=== PATIENT | female | born 1980 | race Caucasian/White ===

== ENCOUNTER 2016-11-24 15:28 | Emergency (ER) | payer MEDICAID ==
--- NOTE | 2016-11-24 15:53 | ER Document Report ---
ED Medical Screen (RME) - General Chief Complaint: Abdominal Pain Stated Complaint: SIDE PAIN Time seen by provider: 15:51 Mode of Arrival: Ambulatory Information source: Patient Notes: 35-year-old female complaining of left lower quadrant and left side pain that started gradually yesterday morning at 8. It 35 year old female complaining of left lower quadrant abdominal pain and left side pain that feels like her diverticulitis. There is associated nausea. Soft bowel movement with yellow mucus. No dysuria frequency r urgency. No hematuria. No fever. BTL. I have greeted and performed a rapid initial assessment of this patient. A comprehensive ED assessment, evaluation of the patient, analysis of test results , and completion of the medical decision making process will be conducted by additional ED providers. TRAVEL OUTSIDE OF THE [place] IN LAST 30 DAYS: No - Related Data Allergies/Adverse Reactions: No Known Allergies Allergy (Verified 11/09/15 10:00) Past Medical History - Past Medical History Cardiac Medical History: Reports: Hx Coronary Artery Disease Denies: Hx Heart Attack, Hx Hypertension Pulmonary Medical History: Denies: Hx Asthma, Hx Bronchitis, Hx COPD, Hx Pneumonia Neurological Medical History: Denies: Hx Cerebrovascular Accident, Hx Seizures GI Medical History: Reports: Hx Diverticulitis Musculoskeltal Medical History: Denies Hx Arthritis Past Surgical History: Reports: Hx Appendectomy, Hx Section, Hx Cholecystectomy, Hx Tonsillectomy, Hx Tubal Ligation. Denies: Hx Hysterectomy - Immunizations Hx Diphtheria, Pertussis, Tetanus Vaccination: No Physical Exam - Vital signs Vitals: Temp Pulse Resp BP Pulse Ox 98.0 F 78 18 150/86 H 97 11/24/16 15:41 11/24/16 15:41 11/24/16 15:41 11/24/16 15:41 11/24/16 15:41 Course - Vital Signs Vital signs: Temp Pulse Resp BP Pulse Ox 98.0 F 78 18 150/86 H 97 11/24/16 15:41 11/24/16 15:41 11/24/16 15:41 11/24/16 15:41 11/24/16 15:41
[2016-11-24 17:15] LABS: ABSOLUTE BASOPHILS # (AUTO) 0.1 10^3/uL (0.0-0.2); ABSOLUTE EOSINOPHILS # (AUTO) 0.1 10^3/uL (0.0-0.6); ABSOLUTE LYMPHOCYTES (AUTO) 2.5 10^3/uL (0.5-4.7); ABSOLUTE MONOCYTES (AUTO) 0.5 10^3/uL (0.1-1.4); ABSOLUTE NEUT (AUTO) 6.7 10^3/uL (1.7-8.2); BASOPHILS % (AUTO) 1.1 % (0-2); EOSINOPHILS % (AUTO) 1.3 % (0-6); HEMATOCRIT 41.4 % (36.0-47.0); HEMOGLOBIN 13.5 g/dL (12.0-15.5); HGB HCT DIFFERENCE -0.9; LYMPHOCYTES % (AUTO) 25.3 % (13-45); MEAN CORPUSCULAR HEMOGLOBIN 26.8 pg (27.0-33.4); MEAN CORPUSCULAR HGB CONC 32.7 g/dL (32.0-36.0); MEAN CORPUSCULAR VOLUME 82 fl (80-97); MONOCYTES % (AUTO) 5.1 % (3-13); RED BLOOD COUNT 5.05 10^6/uL (3.72-5.28); RED CELL DISTRIBUTION WIDTH 15.3 % (11.5-14.0); SEGMENTED NEUTROPHILS % (AUTO) 67.2 % (42-78)
[2016-11-24 17:35] LABS: ALANINE AMINOTRANSFERASE 25 U/L (9-52); ALBUMIN 4.2 g/dL (3.5-5.0); ALKALINE PHOSPHATASE 88 U/L (38-126); ANION GAP 9 (5-19); ASPARTATE AMINO TRANSFERASE 15 U/L (14-36); BILIRUBIN,TOTAL 0.4 mg/dL (0.2-1.3); BLOOD UREA NITROGEN 12 mg/dL (7-20); CALCIUM 9.3 mg/dL (8.4-10.2); CARBON DIOXIDE 26 mmol/L (22-30); CHLORIDE 106 mmol/L (98-107); CREATININE RESULT 0.95 mg/dL (0.52-1.25); GLUCOSE 88 mg/dL (75-110); LIPASE 62.6 U/L (23-300); POTASSIUM 4.1 mmol/L (3.6-5.0); SODIUM 141.3 mmol/L (137-145); TOTAL PROTEIN 7.1 g/dL (6.3-8.2)
[2016-11-24 17:45] LABS: APPEARANCE,URINE CLOUDY; BILIRUBIN,URINE NEGATIVE (NEGATIVE); GLUCOSE, URINE NEGATIVE (NEGATIVE); KETONES,URINE NEGATIVE (NEGATIVE); LEUKOCYTE ESTERASE,URINE SMALL (NEGATIVE); NITRITE,URINE NEGATIVE (NEGATIVE); PROTEIN,URINE 30 mg/dL (NEGATIVE); URINE SPECIFIC GRAVITY 1.024; UROBILINOGEN,URINE NEGATIVE mg/dL (<2.0)
[2016-11-24] MEDS ORDERED: METRONIDAZOLE 500 MG TABLET PO ONE (19:08)
[2016-11-24] MEDS ORDERED: HYDROCODONE/ACETAMINOPHEN 5-325 MG 6 TAB/DSPK PO PRN (19:08)
[2016-11-24] MEDS ORDERED: CIPROFLOXACIN HCL 500 MG TABLET PO ONE (19:08)
--- NOTE | 2016-11-24 19:12 | ER Document Report ---
ED GI/ - General Chief Complaint: Abdominal Pain Stated Complaint: SIDE PAIN Time seen by provider: 19:08 Mode of Arrival: Ambulatory Information source: Patient TRAVEL OUTSIDE OF THE [place] IN LAST 30 DAYS: No - HPI Patient complains to provider of: Abdominal pain Onset: Yesterday Timing/Duration: Persistent Quality of pain: Achy Severity at maximum: Moderate Severity in ED: Moderate Pain Level: 3 Location: LLQ Vaginal bleeding (Compared to normal period): None Associated symptoms: Nausea Exacerbated by: Denies Relieved by: Denies Similar symptoms previously: Yes Recently seen / treated by doctor: No Notes: 11/24/16 19:09 Patient is a 35-year-old female with a history of diverticulitis who presents to the emergency room complaining of left lower quadrant pain and tenderness which is consistent with her previous episode of diverticulitis, symptoms started yesterday, she reports some nausea but no vomiting, she reports soft mucousy stools, no dysuria or hematuria, no fever or chills, she reports the pain as being constant squeezing with intermittent stabbing, she has been evaluated by gastroenterology in the past, and was initially diagnosed with diverticulitis in this emergency room in 2015 - Related Data Allergies/Adverse Reactions: No Known Allergies Allergy (Verified 11/09/15 10:00) Past Medical History - General Information source: Patient - Social History Smoking Status: Unknown if Ever Smoked Family History: Reviewed & Not Pertinent Patient has suicidal ideation: No Patient has homicidal ideation: No - Past Medical History Cardiac Medical History: Reports: Hx Coronary Artery Disease Denies: Hx Heart Attack, Hx Hypertension Pulmonary Medical History: Denies: Hx Asthma, Hx Bronchitis, Hx COPD, Hx Pneumonia Neurological Medical History: Denies: Hx Cerebrovascular Accident, Hx Seizures Renal/ Medical History: Denies: Hx Peritoneal Dialysis GI Medical History: Reports: Hx Diverticulitis Musculoskeltal Medical History: Denies Hx Arthritis Past Surgical History: Reports: Hx Appendectomy, Hx Section, Hx Cholecystectomy, Hx Tonsillectomy, Hx Tubal Ligation. Denies: Hx Hysterectomy - Immunizations Hx Diphtheria, Pertussis, Tetanus Vaccination: No Review of Systems - Review of Systems Constitutional: No symptoms reported EENT: No symptoms reported Cardiovascular: No symptoms reported Respiratory: No symptoms reported Gastrointestinal: See HPI Genitourinary: No symptoms reported Female Genitourinary: No symptoms reported Musculoskeletal: No symptoms reported Skin: No symptoms reported Hematologic/Lymphatic: No symptoms reported Neurological/Psychological: No symptoms reported -: Yes All other systems reviewed and negative Physical Exam - Vital signs Vitals: Temp Pulse Resp BP Pulse Ox 98.0 F 78 18 150/86 H 97 11/24/16 15:41 11/24/16 15:41 11/24/16 15:41 11/24/16 15:41 11/24/16 15:41 Interpretation: Normal - General General appearance: Appears well, Alert - HEENT Head: Normocephalic, Atraumatic Eyes: Normal Pupils: PERRL - Respiratory Respiratory status: No respiratory distress Chest status: Nontender Breath sounds: Normal Chest palpation: Normal - Cardiovascular Rhythm: Regular Heart sounds: Normal auscultation Murmur: No - Abdominal Inspection: Obese Distension: No distension Bowel sounds: Normal Tenderness: Tender - Left lower quadrant Organomegaly: No organomegaly - Back Back: Normal, Nontender - Extremities General upper extremity: Normal inspection, Nontender, Normal color, Normal ROM , Normal temperature General lower extremity: Normal inspection, Nontender, Normal color, Normal ROM , Normal temperature, Normal weight bearing. No: Maryam's sign - Neurological Neuro grossly intact: Yes Cognition: Normal Orientation: AAOx4 [place] Coma Scale Eye Opening: Spontaneous [place] Coma Scale Verbal: Oriented [place] Coma Scale Motor: Obeys Commands [place] Coma Scale Total: 15 Speech: Normal Motor strength normal: LUE, RUE, LLE, RLE Sensory: Normal - Psychological Associated symptoms: Normal affect, Normal mood - Skin Skin Temperature: Warm Skin Moisture: Dry Skin Color: Normal Course - Re-evaluation Re-evalutation: 11/24/16 19:10 Patient's symptoms are consistent with previous episode of diverticulitis, she is tender in the left lower quadrant, she is also noted to have blood and leukocyte esterase in her urine, therefore we will start her on antibiotics which include Cipro and Flagyl which should treat both diverticulitis and urinary tract infection, patient was provided with a list of gastroenterologists to follow-up with, advised to return if symptoms worsen, patient acknowledges understanding and agreement with this plan - Vital Signs Vital signs: Temp Pulse Resp BP Pulse Ox 98.0 F 78 18 150/86 H 97 11/24/16 15:41 11/24/16 15:41 11/24/16 15:41 11/24/16 15:41 11/24/16 15:41 - Laboratory Result Diagrams: 11/24/16 17:02 11/24/16 17:02 Laboratory results interpreted by me: 11/24/16 11/24/16 17:02 17:20 MCH 26.8 L RDW 15.3 H Urine Protein 30 H Urine Blood LARGE H Ur Leukocyte Esterase SMALL H Discharge - Discharge Clinical Impression: Diverticulitis Qualifiers: Diverticulitis site: large intestine Diverticulitis bleeding: without bleeding Diverticulitis complication: without perforation or abscess Qualified Code(s): K57.32 - Diverticulitis of large intestine without perforation or abscess without bleeding Urinary tract infection Qualifiers: Urinary tract infection type: site unspecified Hematuria presence: without hematuria Qualified Code(s): N39.0 - Urinary tract infection, site not specified Condition: Stable Disposition: HOME, SELF-CARE Instructions: Diverticulitis ([facility]), Abdominal Pain ([facility]), Ciprofloxacin ([facility]), Oral Narcotic Medication ([facility]), Urinary Tract Infection ([facility]), Gastroenterology Additional Instructions: Follow up with your primary care provider in one to 2 days. Return to the emergency room immediately if symptoms worsen or any additional concerns. Prescriptions: Ciprofloxacin HCl [Cipro 500 mg Tablet] 500 mg PO BID #20 tablet Hydrocodone/Acetaminophen [Hydrocodon-Acetaminophen 5-325] 1 each PO Q6 #20 tablet Metronidazole [Flagyl 500 mg Tablet] 500 mg PO TID #30 tablet
[2016-11-24 19:30] VITALS: BP 139/80
== END 2016-11-24 19:31 | disposition home or self-care (01) ==
LOC: ER 15:28
DX: K57.32 Diverticulitis of large intestine without perforation or abscess without bleeding (principal); N39.0 Urinary tract infection, site not specified; R10.32 Left lower quadrant pain; R10.814 Left lower quadrant abdominal tenderness; R11.0 Nausea; R19.4 Change in bowel habit; I25.10 Atherosclerotic heart disease of native coronary artery without angina pectoris; Z90.49 Acquired absence of other specified parts of digestive tract; Z98.51 Tubal ligation status
CPT/HCPCS: 99284; 36415; 83690; 84703; 85025; 80053; 81001; J3490 ×2

== ENCOUNTER 2017-01-08 08:00 | Emergency (ER) | payer MEDICAID ==
[2017-01-08 09:31] LABS: ABSOLUTE BASOPHILS # (AUTO) 0.1 10^3/uL (0.0-0.2); ABSOLUTE EOSINOPHILS # (AUTO) 0.1 10^3/uL (0.0-0.6); ABSOLUTE LYMPHOCYTES (AUTO) 1.4 10^3/uL (0.5-4.7); ABSOLUTE MONOCYTES (AUTO) 0.6 10^3/uL (0.1-1.4); ABSOLUTE NEUT (AUTO) 15.2 10^3/uL (1.7-8.2); BASOPHILS % (AUTO) 0.4 % (0-2); EOSINOPHILS % (AUTO) 0.6 % (0-6); HEMATOCRIT 43.6 % (36.0-47.0); HEMOGLOBIN 14.2 g/dL (12.0-15.5); LYMPHOCYTES % (AUTO) 8.2 % (13-45); MEAN CORPUSCULAR HEMOGLOBIN 26.5 pg (27.0-33.4); MEAN CORPUSCULAR HGB CONC 32.7 g/dL (32.0-36.0); MEAN CORPUSCULAR VOLUME 81 fl (80-97); MONOCYTES % (AUTO) 3.4 % (3-13); RED BLOOD COUNT 5.36 10^6/uL (3.72-5.28); RED CELL DISTRIBUTION WIDTH 15.2 % (11.5-14.0); SEGMENTED NEUTROPHILS % (AUTO) 87.4 % (42-78); WHITE BLOOD COUNT 17.4 10^3/uL (4.0-10.5)
[2017-01-08 09:43] LABS: ALANINE AMINOTRANSFERASE 28 U/L (9-52); ALBUMIN 4.3 g/dL (3.5-5.0); ALKALINE PHOSPHATASE 109 U/L (38-126); ANION GAP 12 (5-19); ASPARTATE AMINO TRANSFERASE 16 U/L (14-36); BILIRUBIN,DIRECT 0.3 mg/dL (0.0-0.4); BILIRUBIN,TOTAL 0.4 mg/dL (0.2-1.3); BLOOD UREA NITROGEN 11 mg/dL (7-20); CALCIUM 9.6 mg/dL (8.4-10.2); CARBON DIOXIDE 25 mmol/L (22-30); CHLORIDE 108 mmol/L (98-107); CREATININE RESULT 0.71 mg/dL (0.52-1.25); GLUCOSE 116 mg/dL (75-110); POTASSIUM 4.5 mmol/L (3.6-5.0); SODIUM 145.4 mmol/L (137-145); TOTAL PROTEIN 7.3 g/dL (6.3-8.2)
[2017-01-08 10:12] LABS: APPEARANCE,URINE SLIGHTLY-CLOUDY; BILIRUBIN,URINE NEGATIVE (NEGATIVE); GLUCOSE, URINE NEGATIVE (NEGATIVE); KETONES,URINE NEGATIVE (NEGATIVE); LEUKOCYTE ESTERASE,URINE NEGATIVE (NEGATIVE); NITRITE,URINE NEGATIVE (NEGATIVE); PROTEIN,URINE NEGATIVE (NEGATIVE); URINE SPECIFIC GRAVITY 1.026; UROBILINOGEN,URINE NEGATIVE mg/dL (<2.0)
[2017-01-08] MEDS ORDERED: NORMAL SALINE 1000 ML 1,000 ML IV ONE (11:03)
--- NOTE | 2017-01-08 11:08 | ER Document Report ---
ED GI/ - General Chief Complaint: Abdominal Pain Stated Complaint: LEFT SIDE FLANK PAIN, VOMITING Time seen by provider: 11:02 Mode of Arrival: Ambulatory Information source: Patient Notes: 36-year-old female complaining of left-sided abdominal pain that radiated across her low abdomen to the right side since 9:00 last night. It is sharp. White count is 17,000 and a test is negative. Chemistry is normal. No vaginal discharge. No dysuria or frequency. She has a history of diverticulosis and thought it was that since she had mucous and blood with stool yesterday but she is vomiting and has pain all the way across which is different. Last abd. ct was TRAVEL OUTSIDE OF THE [place] IN LAST 30 DAYS: No - Related Data Allergies/Adverse Reactions: No Known Allergies Allergy (Verified 01/08/17 08:08) Past Medical History - General Information source: Patient - Social History Smoking Status: Current Every Day Smoker Chew tobacco use (# tins/day): No Frequency of alcohol use: None Drug Abuse: Marijuana Lives with: Spouse/Significant other Family History: Reviewed & Not Pertinent Patient has suicidal ideation: No Patient has homicidal ideation: No - Past Medical History Cardiac Medical History: Reports: Hx Coronary Artery Disease Renal/ Medical History: Denies: Hx Peritoneal Dialysis GI Medical History: Reports: Hx Diverticulitis Past Surgical History: Reports: Hx Appendectomy, Hx Section, Hx Cholecystectomy, Hx Tonsillectomy, Hx Tubal Ligation. Denies: Hx Hysterectomy - Immunizations Hx Diphtheria, Pertussis, Tetanus Vaccination: No Review of Systems - Review of Systems Constitutional: No symptoms reported EENT: No symptoms reported Cardiovascular: No symptoms reported Respiratory: No symptoms reported Gastrointestinal: No symptoms reported Genitourinary: No symptoms reported Female Genitourinary: No symptoms reported Musculoskeletal: No symptoms reported Skin: No symptoms reported Hematologic/Lymphatic: No symptoms reported Neurological/Psychological: No symptoms reported Physical Exam - Vital signs Vitals: Temp Pulse Resp BP Pulse Ox 98.0 F 62 21 H 145/90 H 100 01/08/17 08:07 01/08/17 08:07 01/08/17 08:07 01/08/17 08:07 01/08/17 08:07 Interpretation: Normal - General General appearance: Appears well, Alert Notes: Tearful and obese - HEENT Head: Normocephalic, Atraumatic Eyes: Normal Conjunctiva: Normal Pupils: PERRL Mucous membranes: Normal Pharynx: Normal Neck: Supple. No: Lymphadenopathy - Respiratory Respiratory status: No respiratory distress Chest status: Nontender Breath sounds: Normal Chest palpation: Normal - Cardiovascular Rhythm: Regular Heart sounds: Normal auscultation Murmur: No - Abdominal Inspection: Normal Distension: No distension Bowel sounds: Normal Tenderness: Tender - Pelvis all the way across, left lower quadrant Organomegaly: No organomegaly. No: Hepatomegaly, Splenomegaly - Genitourinary External exam: Normal Speculum exam: Normal, Cervix closed, Other - Clear mucus that I Vaginal bleeding: None Bimanuel exam: Cervical motion tender, Adnexal tenderness - Back Back: Normal, Nontender. No: CVA tenderness - Extremities General upper extremity: Normal inspection, Nontender, Normal color, Normal ROM , Normal temperature General lower extremity: Normal inspection, Nontender, Normal color, Normal ROM , Normal temperature, Normal weight bearing. No: Maryam's sign - Neurological Neuro grossly intact: Yes Cognition: Normal Orientation: AAOx4 [place] Coma Scale Eye Opening: Spontaneous [place] Coma Scale Verbal: Oriented [place] Coma Scale Motor: Obeys Commands [place] Coma Scale Total: 15 Speech: Normal Motor strength normal: LUE, RUE, LLE, RLE Sensory: Normal - Psychological Associated symptoms: Normal affect, Normal mood - Skin Skin Temperature: Warm Skin Moisture: Dry Skin Color: Normal Skin irregularity: negative: Rash Course - Re-evaluation Re-evalutation: 01/08/17 13:53 Transvaginal ultrasound was negative. No torsion. 01/08/17 13:[address] acosta recommends getting a CT the abdomen and pelvis with IV contrast. Her BMI is 35 01/08/17 15:44 CT shows early acute diverticulitis and they sigmoid and descending colon. There is no perforation or abscess. STD cultures are negative. Wet prep is negative urine is negative - Vital Signs Vital signs: Temp Pulse Resp BP Pulse Ox 98.0 F 62 21 H 145/90 H 100 01/08/17 08:07 01/08/17 08:07 01/08/17 08:07 01/08/17 08:07 01/08/17 08:07 - Laboratory Result Diagrams: 01/08/17 09:16 01/08/17 09:16 Laboratory results interpreted by me: 01/08/17 01/08/17 09:16 09:16 WBC 17.4 H RBC 5.36 H MCH 26.5 L RDW 15.2 H Seg Neutrophils % 87.4 H Lymphocytes % 8.2 L Absolute Neutrophils 15.2 H Sodium 145.4 H Chloride 108 H Glucose 116 H Discharge - Discharge Clinical Impression: early acute diverticulitis Condition: Good Disposition: HOME, SELF-CARE Instructions: Abdominal Pain ([facility]), Diverticulitis ([facility]), Ciprofloxacin ([facility]), Metronidazole ([facility]), Ultram ([facility]) Additional Instructions: to er if worse see program writer about this frequent diverticulitis drink plenty of fluids Please complete the patient satisfaction survey if you get one, and return it.. If you do not receive a survey, then you can go to the [facility] website, [email or web address] and place your comments about your very good care. Thank you very much. It was a pleasure being your medical provider today. Prescriptions: Ciprofloxacin HCl [Cipro 750 mg Tablet] 750 mg PO BID #20 tablet Metronidazole [Flagyl 500 mg Tablet] 500 mg PO Q6H #40 tablet Tramadol HCl [Ultram 50 mg Tablet] 50 mg PO ASDIR PRN #15 tablet PRN Reason:
[2017-01-08] MEDS ORDERED: MORPHINE SULFATE 10 MG/ML INJ IV ONE ×2 (11:10→14:24)
[2017-01-08] MEDS ORDERED: CEFTRIAXONE INJ 250 MG VIAL IV ONE (12:28)
[2017-01-08] MEDS ORDERED: AZITHROMYCIN 250 MG TABLET PO ONE (12:28)
[2017-01-08 14:17] LABS: CHLAM PCR NOT DETECTED (NOT DETECT)
[2017-01-08] MEDS ORDERED: ONDANSETRON HCL INJ/PF 4 MG/2 ML SDV IV ONE (14:24)
[2017-01-08 16:39] VITALS: BP 132/73
== END 2017-01-08 16:00 | disposition home or self-care (01) ==
LOC: ER 08:00
DX: K57.92 Diverticulitis of intestine, part unspecified, without perforation or abscess without bleeding (principal); R10.9 Unspecified abdominal pain; F17.200 Nicotine dependence, unspecified, uncomplicated
CPT/HCPCS: 96376; 99284; 96361; 96375; 96365; 36415; 87210; 85025; 81025; 80053; 81001; 87491; 87591; 76830; 93976; 74177; Q0144; J2270; J2405; J7030; J0696

== ENCOUNTER 2017-06-05 21:41 | Emergency (ER) | payer MEDICAID ==
[2017-06-05 22:53] LABS: ABSOLUTE BASOPHILS # (AUTO) 0.1 10^3/uL (0.0-0.2); ABSOLUTE EOSINOPHILS # (AUTO) 0.2 10^3/uL (0.0-0.6); ABSOLUTE LYMPHOCYTES (AUTO) 2.5 10^3/uL (0.5-4.7); ABSOLUTE MONOCYTES (AUTO) 0.8 10^3/uL (0.1-1.4); ABSOLUTE NEUT (AUTO) 5.6 10^3/uL (1.7-8.2); BASOPHILS % (AUTO) 0.6 % (0-2); EOSINOPHILS % (AUTO) 2.7 % (0-6); HEMATOCRIT 37.9 % (36.0-47.0); HEMOGLOBIN 12.6 g/dL (12.0-15.5); HGB HCT DIFFERENCE -0.1; MEAN CORPUSCULAR HEMOGLOBIN 27.2 pg (27.0-33.4); MEAN CORPUSCULAR HGB CONC 33.1 g/dL (32.0-36.0); MEAN CORPUSCULAR VOLUME 82 fl (80-97); MONOCYTES % (AUTO) 8.4 % (3-13); RED BLOOD COUNT 4.62 10^6/uL (3.72-5.28); RED CELL DISTRIBUTION WIDTH 15.5 % (11.5-14.0); SEGMENTED NEUTROPHILS % (AUTO) 61.3 % (42-78); WHITE BLOOD COUNT 9.1 10^3/uL (4.0-10.5)
--- NOTE | 2017-06-05 23:20 | ER Document Report ---
ED General - General Chief Complaint: Vaginal Bleeding Stated Complaint: POST SURGERY CHECK Time Seen by Provider: 06/05/17 22:07 Notes: Patient is a 36 year old female status post sigmoidectomy, left oophorectomy, complete hysterectomy on the of this month at [facility] who presents with concerns of a small amount of vaginal bleeding today. States that she did pass a clot tonight which prompted her come to the emergency department. Denies anything beyond a very small amount of spotting at this time. States she has had some small pinkish discharge since surgery but never anything to this degree. She has not followed up with her surgeon regarding this concern. Denies any syncope, significant abdominal pain, fever or constitutional symptoms. Nothing improves or worsens her symptoms. TRAVEL OUTSIDE OF THE [place] IN LAST 30 DAYS: No - Related Data Allergies/Adverse Reactions: No Known Allergies Allergy (Verified 06/05/17 22:21) Past Medical History - General Information source: Patient Last Menstrual Period: hysterectomy - Social History Smoking Status: Current Every Day Smoker Chew tobacco use (# tins/day): No Frequency of alcohol use: None Drug Abuse: None Lives with: Spouse/Significant other Family History: Reviewed & Not Pertinent Patient has suicidal ideation: No Patient has homicidal ideation: No - Past Medical History Cardiac Medical History: Reports: Hx Coronary Artery Disease Denies: Hx Heart Attack, Hx Hypertension Pulmonary Medical History: Denies: Hx Asthma, Hx Bronchitis, Hx COPD, Hx Pneumonia Neurological Medical History: Denies: Hx Cerebrovascular Accident, Hx Seizures Renal/ Medical History: Denies: Hx Peritoneal Dialysis GI Medical History: Reports: Hx Diverticulitis Musculoskeltal Medical History: Denies Hx Arthritis Past Surgical History: Reports: Hx Appendectomy, Hx Bowel Surgery - / colon , Hx Section, Hx Cholecystectomy, Hx Hysterectomy, Hx Tonsillectomy - adenoids, Hx Tubal Ligation - Immunizations Hx Diphtheria, Pertussis, Tetanus Vaccination: Yes Review of Systems - Review of Systems Notes: Constitutional: Negative for fever. HENT: Negative for sore throat. Eyes: Negative for visual changes. Cardiovascular: Negative for chest pain. Respiratory: Negative for shortness of breath. Gastrointestinal: Negative for abdominal pain, vomiting or diarrhea. Genitourinary: Negative for dysuria. Positive for vaginal bleeding Musculoskeletal: Negative for back pain. Skin: Negative for rash. Neurological: Negative for headaches, weakness or numbness. 10 point ROS negative except as marked above and in HPI. Physical Exam - Vital signs Vitals: Temp Pulse Resp BP Pulse Ox 98.8 F 107 H 16 152/112 H 98 06/05/17 22:02 06/05/17 22:02 06/05/17 22:02 06/05/17 22:02 06/05/17 22:02 Interpretation: Hypertensive, Tachycardic Notes: PHYSICAL EXAMINATION: GENERAL: Well-appearing, well-nourished and in no acute distress. HEAD: Atraumatic, normocephalic. EYES: Pupils equal round and reactive to light, extraocular movements intact, sclera anicteric, conjunctiva are normal. ENT: nares patent, oropharynx clear without exudates. Moist mucous membranes. NECK: Normal range of motion, supple without lymphadenopathy LUNGS: Breath sounds clear to auscultation bilaterally and equal. No wheezes rales or rhonchi. HEART: Regular rate and rhythm without murmurs ABDOMEN: Soft, nontender, normoactive bowel sounds. No guarding, no rebound. No masses appreciated. : Scant vaginal bleeding EXTREMITIES: Normal range of motion, no pitting or edema. No cyanosis. NEUROLOGICAL: No focal neurological deficits. Moves all extremities spontaneously and on command. PSYCH: Normal mood, normal affect. SKIN: Warm, Dry, normal turgor, midline abdominal incision is well-healing, no evidence of associated infection Course - Re-evaluation Re-evalutation: 06/05/17 23:17 Patient presents with a very small amount of vaginal bleeding after complete hysterectomy and sigmoidectomy. Her abdominal wound is well in appearance without any evidence of infection. Vaginal exam shows only scant vaginal bleeding. Hemoglobin is within normal limits. She is here on the recommendation of her home health nurse and has no additional concerns and is requesting to go home. I think this is appropriate as patient does not appear to be any having any significant amount of bleeding. Her vitals otherwise within normal lives at home assessment although she was initially mildly tachycardic at presentation. At this time will discharge with return precautions and follow-up recommendations. Verbal discharge instructions given a the bedside and opportunity for questions given. Medication warnings reviewed. Patient is in agreement with this plan and has verbalized understanding of return precautions and the need for primary care follow-up in the next 24-72 hours. - Vital Signs Vital signs: Temp Pulse Resp BP Pulse Ox 98.6 F 93 18 162/99 H 98 06/05/17 23:45 06/05/17 23:45 06/05/17 22:17 06/05/17 23:45 06/05/17 23:45 - Laboratory Result Diagrams: 06/05/17 22:43 Laboratory results interpreted by me: 06/05/17 22:43 RDW 15.5 H Discharge - Discharge Clinical Impression: Postoperative vaginal bleeding Condition: Good Disposition: HOME, SELF-CARE Additional Instructions: Your blood counts are normal. Small amounts of blood like what you pass today are normal after a hysterectomy. Return if you began bleeding through more than 1 pad per hour for more than 2 hours, you pass out, develop a fever, or have any other symptoms that are worrisome to you.
[2017-06-05 23:52] VITALS: BP 162/99
== END 2017-06-05 23:50 | disposition home or self-care (01) ==
LOC: ER 21:41
DX: N99.820 Postprocedural hemorrhage of a genitourinary system organ or structure following a genitourinary system procedure (principal); N99.821 Postprocedural hemorrhage of a genitourinary system organ or structure following other procedure; Z90.49 Acquired absence of other specified parts of digestive tract; Z90.710 Acquired absence of both cervix and uterus; Z90.79 Acquired absence of other genital organ(s); F17.200 Nicotine dependence, unspecified, uncomplicated; I25.10 Atherosclerotic heart disease of native coronary artery without angina pectoris
CPT/HCPCS: 36415; 85025; 99283

== ENCOUNTER 2018-01-25 | Emergency (ER) | payer MEDICAID | END 2018-01-25 23:00 | disposition left against medical advice (07) | DX: Z53.21 Procedure and treatment not carried out due to patient leaving prior to being seen by health care provider (principal) ==

== ENCOUNTER 2018-11-23 14:45 | Emergency (ER) | payer MEDICAID ==
[2018-11-23 14:57] VITALS: BP 147/85
[2018-11-23] MEDS ORDERED: ACETAMINOPHEN 325 MG TABLET PO ONE (16:09)
[2018-11-23] MEDS ORDERED: ONDANSETRON 4 MG TAB.RAPDIS PO ONE (16:09)
--- NOTE | 2018-11-23 16:19 | ER Document Report ---
ED Respiratory Problem - General Chief Complaint: Cough Stated Complaint: COUGH/DIFFICULTY BREATHING Time Seen by Provider: 11/23/18 16:02 Primary Care Provider: ROSSI PHILLIP MD [Primary Care Provider] - Follow up as needed Mode of Arrival: Ambulatory Information source: Patient Notes: 37-year-old female presents to ED for cough cold congestion hurts to cough and headache times 3 days. She does have a runny nose congestion with ear pain. She has a history of high blood pressure. She states when she coughs her ribs hurt as well as her back. Patient is alert oriented respirations regular and unlabored she does have a dry cough lungs are clear to auscultation. TRAVEL OUTSIDE OF THE [place] IN LAST 30 DAYS: No - HPI Patient complains to provider of: Cough, Short of breath, Other - Pain with cough Onset: Other - 3-4 days Duration: Continuous Initiating Event: URI, Other - Smoker Quality of pain: Achy, Sharp Severity: Moderate Pain Level: 4 Context: Smoker Short of Breath: Mild Chest pain/discomfort: Pain - Cough Cough: Nonproductive Sputum amount: None Associated symptoms: Chest pain/discomfort - With cough, Cough, Earache, Fever, Runny nose, Sinus pain/pressure, Short of breath Similar symptoms previously: Yes Recently seen / treated by doctor: No - Related Data Allergies/Adverse Reactions: No Known Allergies Allergy (Verified 11/23/18 14:51) Past Medical History - General Information source: Patient - Social History Smoking Status: Current Every Day Smoker Cigarette use (# per day): Yes - 1/2 pack/day Chew tobacco use (# tins/day): No Smoking Education Provided: Yes Frequency of alcohol use: Rare Drug Abuse: None Lives with: Spouse/Significant other Family History: Reviewed & Not Pertinent - Past Medical History Cardiac Medical History: Reports: Hx Hypertension Pulmonary Medical History: Reports: Hx Pneumonia EENT Medical History: Reports: None Neurological Medical History: Reports: Hx Migraine Endocrine Medical History: Reports: None Renal/ Medical History: Reports: Hx Ovarian Cysts, Other - Uterine fibroids Malignancy Medical History: Reports: None GI Medical History: Reports: Hx Diverticulitis Musculoskeletal Medical History: Reports Hx Musculoskeletal Deformity, Reports Hx Musculoskeletal Trauma Skin Medical History: Reports None Psychiatric Medical History: Reports: None Traumatic Medical History: Reports: Hx Fractures - Ribs bilateral ankles right wrist Infectious Medical History: Reports: None Past Surgical History: Reports: Hx Appendectomy, Hx Bowel Surgery - 10/14 colon 05/22/2017, Hx Section, Hx Cholecystectomy, Hx Hysterectomy, Hx Tonsillectomy - adenoids, Hx Tubal Ligation - Immunizations Immunizations up to date: No Hx Diphtheria, Pertussis, Tetanus Vaccination: No Review of Systems - Review of Systems Constitutional: Chills, Fever, Recent illness EENT: Ear pain, Nose congestion, Nose discharge, Sinus pressure, Sinus discharge Cardiovascular: No symptoms reported Respiratory: Cough, Short of breath Gastrointestinal: No symptoms reported Genitourinary: No symptoms reported Female Genitourinary: No symptoms reported Musculoskeletal: No symptoms reported Skin: No symptoms reported Hematologic/Lymphatic: No symptoms reported Neurological/Psychological: No symptoms reported Physical Exam - Vital signs Vitals: Temp Pulse Resp BP Pulse Ox 99.4 F 93 24 H 147/85 H 95 11/23/18 14:56 11/23/18 14:56 11/23/18 14:56 11/23/18 14:56 11/23/18 14:56 Interpretation: Normal - General General appearance: Appears well, Alert - HEENT Head: Normocephalic, Atraumatic Eyes: Normal Pupils: PERRL Visual arce normal: Yes Ears: Normal External canal: Normal Tympanic membrane: Normal Sinus: Normal Nasal: Purulent discharge, Swelling Mouth/Lips: Normal Mucous membranes: Normal Pharynx: Normal Neck: Anterior cervical chain - Respiratory Respiratory status: No respiratory distress Chest status: Nontender Breath sounds: Nonproductive cough. No: Productive cough, Rales, Rhonchi, Stridor, Wheezing Chest palpation: Normal - Cardiovascular Rhythm: Regular Heart sounds: Normal auscultation Murmur: No - Abdominal Inspection: Normal Distension: No distension Bowel sounds: Normal Tenderness: Nontender Organomegaly: No organomegaly - Back Back: Normal, Nontender - Extremities General upper extremity: Normal inspection, Nontender, Normal color, Normal ROM, Normal temperature General lower extremity: Normal inspection, Nontender, Normal color, Normal ROM, Normal temperature, Normal weight bearing. No: Maryam's sign - Neurological Neuro grossly intact: Yes Cognition: Normal Orientation: AAOx4 Ipava Coma Scale Eye Opening: Spontaneous Ipava Coma Scale Verbal: Oriented Trem[place]ne Coma Scale Motor: Obeys Commands Ipava Coma Scale Total: 15 Speech: Normal Motor strength normal: LUE, RUE, LLE, RLE Sensory: Normal - Psychological Associated symptoms: Normal affect, Normal mood - Skin Skin Temperature: Warm Skin Moisture: Dry Skin Color: Normal Course - Vital Signs Vital signs: Temp Pulse Resp BP Pulse Ox 99.4 F 93 24 H 147/85 H 95 11/23/18 14:56 11/23/18 14:56 11/23/18 14:56 11/23/18 14:56 11/23/18 14:56 - Diagnostic Test Radiology reviewed: Image reviewed, Reports reviewed Discharge - Discharge Clinical Impression: Viral respiratory illness Condition: Stable Disposition: HOME, SELF-CARE Instructions: Family Physicians / Practices Additional Instructions: UPPER RESPIRATORY ILLNESS: You have a viral infection of the respiratory passages -- a "cold." This common infection causes nasal congestion, drainage, and often sore throat and cough. It is highly contagious. The disease usually lasts about 10 to 14 days. There is no "cure" for the viral infection -- it must run its course. If there is a complication, such as bacterial infection in the nose, sinuses, middle ear, or bronchial tubes, antibiotics may be required. The antibiotics won't affect the virus. Drink plenty of fluids. A humidifier may help. An expectorant medication or decongestant may make you more comfortable. Use acetaminophen or ibuprofen for fever or aches. See the doctor if fever persists over two days, if there is any significant worsening of your symptoms, or if you simply fail to improve as expected. COUGH-SUPPRESSANT & EXPECTORANT MEDICATION: You are to use a cough medication as needed for relief of symptoms. This medicine is a combination of an expectorant (to make the mucous thinner and more easily "coughed up") and a cough suppressant (to reduce the frequency of coughing). The cough-suppressant medicine is related to narcotics. You may experience mild nausea and sleepiness. Some patients who are very sensitive to narcotics may have stomach pain from this medicine. Taking the medicine with food reduces these side effects. Do not drive or work with machinery until you know how this medicine affects you. The expectorant should have no side effects. Iodine-containing expectorants (such as organidin) should not be taken by persons with active thyroid disease unless approved by your doctor. Call the doctor if you develop shortness of breath, hives, rash, itching, lightheadedness, or severe nausea and vomiting. USE OF ACETAMINOPHEN (Tylenol): Acetaminophen may be taken for pain relief or fever control. It's much safer than aspirin, offering a wider range of "safe" dosages. It is safe during . Some brand names are Tylenol, Panadol, Datril, Anacin 3, Tempra, and Liquiprin. Acetaminophen can be repeated every four hours. The following are maximum recommended dosages: >89 pounds or adults 650 mg to 900 mg Acetaminophen can be repeated every four hours. Maximum dose not to exceed 4000 mg a day. SMOKING: If you smoke, you should stop smoking. The tar and chemicals in cigarette smoke are harmful. Smoking has been shown to cause: emphysema chronic bronchitis lung cancer mouth and throat cancer stomach and pancreas cancer premature aging defects In addition, smoking increases ear and lung infections in children of smokers. Medications that may help your symptoms are Flonase which is [id number] 2 sprays each nostril, Tylenol, and salt and soda solution gargles to remove the nasal drip from the back of your throat. Can also use Coricidin HB which is okay to use for cough and colds when you have high blood pressure. Please try to stay away from ibuprofen when you have high blood pressure. Salt and soda solution 1 quart of water 1 tablespoon of salt 1 teaspoon of baking soda Mixed 3 ingredients together and boil for 1 minute Placed in a covered quart jar Use 1/2 ounce of cold solution to gargle 3 times a day FOLLOW-UP CARE: If you have been referred to a physician for follow-up care, call the physicians office for an appointment as you were instructed or within the next two days. If you experience worsening or a significant change in your symptoms, notify the physician immediately or return to the Emergency Department at any time for re-evaluation. Forms: Elevated Blood Pressure, Smoking Cessation Education, Return to Work Referrals: ROSSI PHILLIP MD [Primary Care Provider] - Follow up as needed
--- NOTE | 2018-11-23 16:55 | RADIOLOGY REPORT (SQ) ---
EXAM DESCRIPTION: CHEST 2 VIEWS COMPLETED DATE/TIME: 11/23/2018 4:44 pm REASON FOR STUDY: cough congestion fever COMPARISON: None. EXAM PARAMETERS: NUMBER OF VIEWS: two views TECHNIQUE: Digital Frontal and Lateral radiographic views of the chest acquired. RADIATION DOSE: NA LIMITATIONS: none FINDINGS: LUNGS AND PLEURA: No opacities, masses or pneumothorax. No pleural effusion. MEDIASTINUM AND HILAR STRUCTURES: No masses or contour abnormalities. HEART AND VASCULAR STRUCTURES: Heart normal size. No evidence for failure. BONES: No acute findings. HARDWARE: None in the chest. OTHER: No other significant finding. IMPRESSION: NO ACUTE RADIOGRAPHIC FINDING IN THE CHEST. TECHNICAL DOCUMENTATION: JOB ID: [id number] [employer]- All Rights Reserved Reading location - IP/workstation name: [email or web address]
== END 2018-11-23 17:34 | disposition home or self-care (01) ==
LOC: ER 14:45
DX: J98.8 Other specified respiratory disorders (principal); B97.89 Other viral agents as the cause of diseases classified elsewhere; R05 Cough; R51 Headache; R09.89 Other specified symptoms and signs involving the circulatory and respiratory systems; H92.09 Otalgia, unspecified ear; R07.81 Pleurodynia; M54.9 Dorsalgia, unspecified; R06.02 Shortness of breath; J34.89 Other specified disorders of nose and nasal sinuses; R09.81 Nasal congestion; I10 Essential (primary) hypertension; F17.210 Nicotine dependence, cigarettes, uncomplicated
CPT/HCPCS: 99283; 71046; J3490; S0119